=== PATIENT | female | born 1980 | race Caucasian/White ===

== ENCOUNTER → 2024-08-26 | Outpatient (CLI) | payer OTHER ==
[~2024-08-26] MED LIST: BCPs; CEFU500 PO; NEOPOLHYDS OT; NYQUIL; PROACE100 PO; RXPROACE PO
[2024-08-26 10:41] LABS: BASOPHILS ABSOLUTE AUTO 0.03 K/mm3 (0.00-0.23); BASOPHILS PERCENT AUTO 0 % (0-2); EOSINOPHILS PERCENT AUTO 0 % (0-6); Hematocrit 38.5 % (33.0-51.0); IMMATURE GRAN ABSOLUTE AUTO 0.12 K/mm3 (0.00-0.10); IMMATURE GRAN PERCENT AUTO 1 % (0-1); LYMPHOCYTES ABSOLUTE AUTO 2.05 K/mm3 (0.84-5.20); LYMPHOCYTES PERCENT AUTO 9 % (21-46); MONOCYTES ABSOLUTE AUTO 0.81 K/mm3 (0.16-1.47); MONOCYTES PERCENT AUTO 4 % (4-13); Mean Corpuscular HGB 31.6 pg (26.0-34.0); Mean Corpuscular HGB Conc 33.8 g/dL (31.5-36.5); Mean Corpuscular Volume 93 fL (80-100); Mean Platelet Volume 11.5 fL (9.1-12.4); NEUTROPHILS ABSOLUTE AUTO 18.93 K/mm3 (1.96-9.15); NEUTROPHILS PERCENT AUTO 86 % (41-73); Platelet Count 369 K/mm3 (150-400); RDW Standard Deviation 44.5 fL (35.1-46.3); Red Blood Cell Count 4.12 M/mm3 (3.80-5.20); White Blood Cell Count 21.94 K/mm3 (4.00-11.30)
[2024-08-26 11:23] LABS: Albumin, Blood 4.1 g/dL (3.4-5.0); Albumin/Globulin Ratio 1.1 (0.8-1.8); Bilirubin, Total 0.2 mg/dL (0.1-1.0); Bun/Creatinine Ratio 20.9 (12.0-20.0); Calcium, Blood 9.9 mg/dL (8.5-10.1); Creatinine, Blood 0.58 mg/dL (0.40-1.00); Globulin, Blood 3.8 g/dL (2.2-4.0); Potassium, Blood 3.7 mmol/L (3.5-5.5); Total Protein, Blood 7.9 g/dL (6.4-8.2)
== END ==
LOC: LAB SHORT 10:32 → LAB 10:32
PROVIDERS: Internal Medicine Hematology & Oncology
DX: C50.919 Malignant neoplasm of unspecified site of unspecified female breast (principal)
CPT/HCPCS: 80053; 85025

== ENCOUNTER 2024-09-03 19:45 | Emergency (ER) | payer OTHER ==
[~2024-09-03] VITALS: Ht 167.6 cm; Wt 92.5 kg
[2024-09-03 21:46] LABS: Source, Urine Clean Catch
[2024-09-03 21:55] LABS: Hematocrit 36.7 % (33.0-51.0); Hemoglobin 12.3 g/dL (11.5-16.0); Mean Corpuscular HGB 31.5 pg (26.0-34.0); Mean Corpuscular HGB Conc 33.5 g/dL (31.5-36.5); Mean Corpuscular Volume 94 fL (80-100); Mean Platelet Volume 11.4 fL (9.1-12.4); NRBC ABSOLUTE 0.03 K/mm3 (0.00-0.02); NRBC Auto 0.1 /100 WBC (0.0-0.2); Platelet Count 223 K/mm3 (150-400); RDW Coefficient Variation 13.3 % (11.7-14.2); White Blood Cell Count 31.97 K/mm3 (4.00-11.30)
[2024-09-03 21:56] LABS: Blood, Urine Neg (Neg); Glucose Qualitative, Urine Neg (Neg); Ketones, Urine Neg (Neg); Leukocyte Esterase, Urine 1+ (Neg); Nitrite, Urine Pos (Neg); Protein, Urine 1+ (Neg); Urobilinogen, Urine 2+ (Normal)
[2024-09-03 22:01] LABS: Albumin, Blood 3.6 g/dL (3.4-5.0); Bilirubin, Total 0.1 mg/dL (0.1-1.0); Bun/Creatinine Ratio 18.2 (12.0-20.0); Calcium, Blood 8.8 mg/dL (8.5-10.1); Creatinine, Blood 0.72 mg/dL (0.40-1.00); Globulin, Blood 3.5 g/dL (2.2-4.0); Potassium, Blood 3.8 mmol/L (3.5-5.5); Total Protein, Blood 7.1 g/dL (6.4-8.2)
[2024-09-03 22:19] LABS: Bilirubin, Urine 1+ (Neg)
[2024-09-03 22:20] LABS: Appearance, Urine Hazy (Clear); Color, Urine Orange (P-Yellow)
[2024-09-03 22:21] LABS: Bacteria Mod /hpf; Red Blood Cells, Urine 0-2 /hpf (0-2); Squamous Epithelial Cells Many /hpf (Few)
[2024-09-03 22:47] LABS: BAND PERCENT MAN 6 % (0-8); BASOPHILS PERCENT MAN 0 % (0-2); EOSINOPHILS PERCENT MAN 0 % (0-6); LYMPHOCYTES ABSOLUTE MAN 7.99 K/mm3 (0.84-5.20); LYMPHOCYTES PERCENT MAN 25 % (21-46); MONOCYTES ABSOLUTE MAN 1.59 K/mm3 (0.16-1.47); MONOCYTES PERCENT MAN 5 % (4-13); MYELOCYTE ABSOLUTE MAN 0.31 K/mm3 (0.00-0.00); MYELOCYTE PERCENT MAN 1 % (0-0); NEUTROPHILS ABSOLUTE MAN 21.73 K/mm3 (1.96-9.15); PROMYELOCYTE ABSOLUTE MAN 0.31 K/mm3 (0.00-0.00); PROMYELOCYTE PERCENT MAN 1 % (0-0); SEG NEUTROPHILS PERCENT MAN 62 % (41-73); TOTAL CELLS COUNTED 100
[2024-09-03] MEDS ORDERED: NS 1,000 ML IV SCH (23:35)
[2024-09-03] MEDS ORDERED: CefTRIAXone Sodium 1,000 MG in NS 50 ML IV ONE (23:35)
[2024-09-03] MEDS ORDERED: Trimethoprim/Sulfamethoxazole DS Tab PO ONE (23:35)
[2024-09-03] MEDS ORDERED: SULTRIDS PO (23:37)
[2024-09-04 01:21] LABS: Source, Urine Clean Catch
[2024-09-04 01:27] LABS: Bilirubin, Urine Neg (Neg); Blood, Urine Neg (Neg); Glucose Qualitative, Urine Neg (Neg); Ketones, Urine Neg (Neg); Leukocyte Esterase, Urine Neg (Neg); Nitrite, Urine Neg (Neg); Protein, Urine Neg (Neg); Urobilinogen, Urine NORM (Normal)
[2024-09-04 02:11] LABS: Appearance, Urine Clear (Clear); Color, Urine Yellow (P-Yellow)
== END 2024-09-04 01:24 | disposition home or self-care (01) ==
LOC: ER 19:45
PROVIDERS: Emergency Medicine; Student in an Organized Health Care Education/Training Program
DX: N39.0 Urinary tract infection, site not specified (principal); E86.0 Dehydration; C50.919 Malignant neoplasm of unspecified site of unspecified female breast; Z88.5 Allergy status to narcotic agent; Z88.0 Allergy status to penicillin; Z79.899 Other long term (current) drug therapy
CPT/HCPCS: 80053; 81001; 81003; 85025; 87086; 96365; 99283-25; A9270; J0696; J7030

== ENCOUNTER 2025-04-21 06:07 | Day surgery (SDC) | payer OTHER ==
[~2025-04-21] VITALS: Ht 167.6 cm; Wt 86.0 kg
[2025-04-21] VITALS (17 sets, daily range): BP systolic 129–167; BP diastolic 74–94
[~2025-04-21 06:07] MED LIST changes: +Cymbalta20 MG PO; +SULTRIDS PO
[2025-04-21] MEDS ORDERED: CeFAZolin Sodium 2,000 MG in NS 100 ML IV SCH ×2 (06:20→14:00)
[2025-04-21] MEDS ORDERED: FentaNYL Citrate 50 MCG/ML 2 ML Injection ONE (06:56)
[2025-04-21] MEDS ORDERED: Ondansetron HCl 2 MG / ML 2ML Vial ONE (06:56)
[2025-04-21] MEDS ORDERED: Rocuronium Bromide 10 MG/ML 5ML Injection IV ONE ×2 (06:56→08:32)
[2025-04-21] MEDS ORDERED: Midazolam HCl 1MG / ML 2ML Vial ONE (06:56)
[2025-04-21] MEDS ORDERED: Dexamethasone Sod Phos 10 MG/ML 1ML VIAL ONE (06:56)
[2025-04-21] MEDS ORDERED: Bupivacaine 0.5% W/EPI 1:200000 SDV 30 ML Vial ONE (06:59)
--- NOTE | 2025-04-21 07:05 | NUR ---
History, Chart, Medications and Allergies reviewed before start of procedure. Pre-Op teaching done. Pt verbalizes understanding. Patient confirms NPO status and agrees with scheduled surgery.
[2025-04-21] MEDS ORDERED: FentaNYL Citrate 50 MCG/ML 2 ML Injection IV PRN ×2 (08:25→08:30)
[2025-04-21] MEDS ORDERED: Ondansetron HCl 2 MG / ML 2ML Vial IV PRN ×2 (08:30→10:25)
[2025-04-21] MEDS ORDERED: ePHEDrine Sulfate 50 MG/ML 1ML Injection IV PRN (08:30)
[2025-04-21] MEDS ORDERED: Albuterol 2.5 MG/3 ML VIAL INH PRN (08:30)
[2025-04-21] MEDS ORDERED: HYDROmorphone HCl/Pf 1MG SYR ONE (08:38)
[2025-04-21] MEDS ORDERED: Sugammadex Sodium 200 MG/2ML SDV (100 MG/ML) ONE (09:25)
[2025-04-21] MEDS ORDERED: FLU VACC TS2025-26(6MOS UP)/PF 45 MCG/0.5 ML SYRINGE IM SCH (10:20)
[2025-04-21] MEDS ORDERED: HYDROmorphone HCl/Pf 1MG SYR IV PRN (10:25)
[2025-04-21] MEDS ORDERED: OxyCODONE 5 mg/Acetamin 325 mg TABLET PO PRN (10:25)
[2025-04-21] MEDS ORDERED: Naloxone HCl 0.4MG / ML 1ML Vial IV PRN (10:25)
[2025-04-21] MEDS ORDERED: Ketorolac Tromethamine 30mg Vial IV PRN (10:40)
[2025-04-21] MEDS ORDERED: NS 250 ML IV PRN (14:25)
--- NOTE | 2025-04-21 17:12 | NUR ---
SHIFT SUMMARY; PT A/OX4, PLESEANT, AND INDPENDENT TO THE RESTROOM. PT TO ROOM AT APPROX 1100. EXTENDED RECOVERY ASSESSMENT DONE BY THIS RN. SEE ASSESSMENT NOTES. PT IN STABLE CONDITION. VSS, HOWEVER PT HAS HYPERTENSIVE BP READINGS. PT MEDICATED FOR PAIN PER EMAR, WHICH PAIN IS CONTROLLED FOR THE PT. PT ALSO IS UTILIZING HEATING PAD SUPPLIED BY THE HOSPITAL FOR PAIN. INCISION SITES APPEAR CLOSED, INTACT WITH MINIAL DRAINAGE. PT VOIDING URINE W/ ADEQUATE OUTPUT. URINE APPEARS CLEAR, LIGHT YELLOW. PT TOLERATING REGULAR DIET, STARTING SLOW WITH CLEAR LIQUIDS AND INCREASING TO MORE SOLID FOODS. BED IN LOW POSITION. CALL LIGHT WITHIN IN REACH.
[2025-04-21] MEDS ORDERED: Magnesium Hydroxide Conc 10 ML UDC PO SCH (21:00)
[2025-04-22 05:07] VITALS: BP 128/91
--- NOTE | 2025-04-22 05:58 | NUR ---
SHIFT SUMMARY NOC. PT POD 1 FOR ROBOTIC LAP HYSTERECTOMY. LAP SITES HAD DRIED DRAINAGE AT START OF SHIFT ON 3 LAP SITES BUT ARE NOW C/D/I AFTER CLEANING. ABDOMINAL BINDER IN PLACE. PT MEDICATED FOR PAIN WITH REPORTED RELIEF OF SX. PT VOIDING URINE, AND TOLERATING PO. DENIES N/V. MAKES NEEDS KNOWN. CALL LIGHT IN REACH.
[2025-04-22 06:26] LABS: BASOPHILS ABSOLUTE AUTO 0.01 K/mm3 (0.00-0.23); BASOPHILS PERCENT AUTO 0 % (0-2); EOSINOPHILS ABSOLUTE AUTO 0.02 K/mm3 (0.00-0.68); EOSINOPHILS PERCENT AUTO 0 % (0-6); Hematocrit 35.3 % (33.0-51.0); Hemoglobin 11.6 g/dL (11.5-16.0); IMMATURE GRAN ABSOLUTE AUTO 0.04 K/mm3 (0.00-0.10); IMMATURE GRAN PERCENT AUTO 0 % (0-1); LYMPHOCYTES ABSOLUTE AUTO 3.45 K/mm3 (0.84-5.20); LYMPHOCYTES PERCENT AUTO 28 % (21-46); MONOCYTES ABSOLUTE AUTO 1.01 K/mm3 (0.16-1.47); MONOCYTES PERCENT AUTO 8 % (4-13); Mean Corpuscular HGB Conc 32.9 g/dL (31.5-36.5); Mean Corpuscular Volume 92 fL (80-100); NEUTROPHILS ABSOLUTE AUTO 7.89 K/mm3 (1.96-9.15); NEUTROPHILS PERCENT AUTO 64 % (41-73); NRBC ABSOLUTE 0.00 K/mm3 (0.00-0.02); NRBC Auto 0.0 /100 WBC (0.0-0.2); Platelet Count 302 K/mm3 (150-400); RDW Coefficient Variation 14.4 % (11.7-14.2); RDW Standard Deviation 49.1 fL (35.1-46.3)
[2025-04-22 07:10] VITALS: BP 153/88
[2025-04-22] MEDS ORDERED: DULoxetine HCL 20 MG Cap DR PO SCH (09:00)
[2025-04-22 11:12] VITALS: BP 138/87
[2025-04-22] MEDS ORDERED: DULCOLAX400 MG/5 M PO (11:41)
[2025-04-22] MEDS ORDERED: PROMETHAZINE12.5 M1 PO (11:42)
[2025-04-22] MEDS ORDERED: SIME80CH PO (11:42)
[2025-04-22] MEDS ORDERED: Percocet 5-3251 EACH PO (11:43)
--- NOTE | 2025-04-22 12:47 | NUR ---
DISCHARGE PT EDUCATED ON AND RECEIVED PRINTED DISCHARGE INSTRUCTIONS AND VERBALIZED AN UNDERSTANDING. PT REPORTS FILLING NEW RX PRIOR TO SURGERY. IV DC'D. PT AND SPOUSE GATHERED ALL PERSONAL BELONGINGS AND ESCORTED OUT TO VEHICLE VIA W/C.
== END 2025-04-22 12:52 | disposition home or self-care (01) ==
LOC: ORSCMMR 06:07 → ORD 07:30 → SURS 10:24 → ORD 11:30 → ORSCMMR 04-22 12:52
PROVIDERS: Obstetrics & Gynecology
PROC: 0UB74ZZ Excision of Bilateral Fallopian Tubes, Percutaneous Endoscopic Approach (ICD-10-PCS; principal; 2025-04-21 07:30)
PROC: 0UT94ZZ Resection of Uterus, Percutaneous Endoscopic Approach (ICD-10-PCS; principal; 2025-04-21 07:30)
PROC: 0UB24ZZ Excision of Bilateral Ovaries, Percutaneous Endoscopic Approach (ICD-10-PCS; principal; 2025-04-21 07:30)
PROC: 8E0W4CZ Robotic Assisted Procedure of Trunk Region, Percutaneous Endoscopic Approach (ICD-10-PCS; principal; 2025-04-21 07:30)
DX: N93.9 Abnormal uterine and vaginal bleeding, unspecified (principal); R10.20 Pelvic and perineal pain unspecified side; N83.291 Other ovarian cyst, right side; C50.312 Malignant neoplasm of lower-inner quadrant of left female breast; Z17.0 Estrogen receptor positive status [ER+]; Z17.21 Progesterone receptor positive status; E66.9 Obesity, unspecified; Z68.30 Body mass index [BMI] 30.0-30.9, adult; Z79.899 Other long term (current) drug therapy; Z87.891 Personal history of nicotine dependence
CPT/HCPCS: 36415; 85025; 86850; 86900; 86901; 88307; 94762; A9270; J0690; J1100; J1171; J1885; J2250; J2405; J2704; J3010; J7050; J7120